=== PATIENT | male | born 1970 | race Caucasian/White ===

== ENCOUNTER 2017-01-03 15:35 | Emergency (ER) | payer BC ==
[~2017-01-03] VITALS: Ht 167.6 cm; Wt 81.0 kg
[2017-01-03] MEDS ORDERED: ASPIRIN 81 MG TABLET CHEW PO ONE (16:00)
[2017-01-03] MEDS ORDERED: ASPIRIN 81 MG TABLET CHEW ONE (16:02)
[2017-01-03 16:17] LABS: HEMATOCRIT 51.5 % (39.2-51.8); HEMOGLOBIN 17.7 g/dL (13.7-18.0); WHITE BLOOD COUNT 9.5 x10^3/uL (3.4-10)
[2017-01-03 16:25] LABS: BLOOD UREA NITROGEN 13 mg/dL (7-18)
[2017-01-03 16:32] VITALS: BP 133/91
[2017-01-03 16:34] LABS: IS PT STATUS REG ER OR PRE ER? YES
[2017-01-03] MEDS ORDERED: ATOR40TA78 PO (16:34)
== END 2017-01-03 18:14 | disposition home or self-care (01) ==
LOC: ED 17:30
DX: M94.0 Chondrocostal junction syndrome [Tietze] (principal); E78.00 Pure hypercholesterolemia, unspecified; Z87.891 Personal history of nicotine dependence
CPT/HCPCS: 36415; 71010; 80048; 82040; 84484; 85025; 93005; 99285

== ENCOUNTER → 2017-01-17 | Outpatient (CLI) | payer BC ==
[~2017-01-17] MED LIST: ATOR40TA78 PO; REGADENOSON 0.4 MG/5 ML SYRINGE ONE
== END | disposition home or self-care (01) ==
LOC: CFH 12:01
PROVIDERS: ATTEND Internal Medicine Cardiovascular Disease
DX: R07.89 Other chest pain (principal); R94.31 Abnormal electrocardiogram [ECG] [EKG]
CPT/HCPCS: 78452; 93017; A9502; J2785